=== PATIENT | female | born 1955 | race Caucasian/White ===

== ENCOUNTER 2017-12-20 10:48 | Emergency (ER) | payer BC ==
[~2017-12-20] VITALS: Ht 165.1 cm; Wt 60.0 kg
[2017-12-20 10:51] VITALS: BP 176/114; PULSE 72; RESP 14; TEMP 98.2; O2SAT 98
--- NOTE | 2017-12-20 11:52 | PD ---
HPI Chief Complaint: Complaint Time Seen by Provider: 11:17 Travel History International Travel<30 days: No Contact w/Intl Traveler<30days: No Traveled to known affect area: No History of Present Illness HPI 62-year-old female presents the emergency department with history of recurrent UTIs in the past. Patient states she's had dysuria since Friday. Eyes fever, chills, or vaginal discharge. Patient states she was recently treated for UTI 2 weeks ago with Keflex for 1 week and symptoms seemed to resolve but then returned on this past Friday. She denies flank pain. She is allergic to sulfa. Patient is visiting from [place]. [facility] Past Medical History Genitourinary: Yes (chronic uti) Social History Alcohol Use: Yes Tobacco Use: No Substance Use: No Allergies-Medications (Allergen,Severity, Reaction): Coded Allergies: Sulfa (Sulfonamide Antibiotics) (Verified Allergy, Intermediate, Hives, ) Review of Systems Except as stated in HPI: all other systems reviewed are Neg General / Constitutional: No: Fever, Chills Eyes: No: Visual changes HENT: No: Headaches Cardiovascular: No: Chest Pain or Discomfort Respiratory: No: Shortness of Breath Gastrointestinal: No: Abdominal Pain Genitourinary: Positive: Urgency, Frequency, Dysuria, No: Flank Pain, Discharge Musculoskeletal: No: Pain Skin: No Rash Neurologic: No: Weakness Psychiatric: No: Depression Endocrine: No: Polydipsia Hematologic/Lymphatic: No: Easy Bruising Physical Exam Narrative GENERAL: Patient appears in acute distress. SKIN: Warm and dry. Normal color. Normal turgor. HEAD: Atraumatic. Normocephalic. EYES: Pupils equal and round. No scleral icterus. No injection or drainage. ENT: No nasal bleeding or discharge. Mucous membranes pink and moist. Pharynx is clear. Airway is patent. NECK: Trachea midline. Supple. CARDIOVASCULAR: Regular rate and rhythm. RESPIRATORY: No accessory muscle use. Clear to auscultation. Breath sounds equal bilaterally. GASTROINTESTINAL: Abdomen soft, non-tender, nondistended. Hepatic and splenic margins not palpable. No CVA tenderness. MUSCULOSKELETAL: Extremities without clubbing, cyanosis, or edema. No obvious deformities. NEUROLOGICAL: Awake and alert. No obvious cranial nerve deficits. Motor grossly within normal limits. Five out of 5 muscle strength in the arms and legs. Normal speech. PSYCHIATRIC: Appropriate mood and affect; insight and judgment normal. Data Data Last Documented VS Vital Signs Date Time Temp Pulse Resp B/P (MAP) Pulse Ox O2 Delivery O2 Flow Rate FiO2 12/20/17 10:51 98.2 72 14 176/114 (134) 98 Orders Orders Urinalysis - C+S If Indicated (12/20/17 11:18) Labs Laboratory Tests Test 12/20/17 11:30 [facility] Medical Decision Making Medical Screen Exam Complete: Yes Emergency Medical Condition: Yes Differential Diagnosis Dysuria. Cystitis. Recurrent cystitis. Pyelonephritis. Narrative Course UA is collected and sent to the lab for culture. Patient will be treated with Macrodantin 100 mg twice a day 2 weeks. Patient follow-up with her primary care physician upon arrival back to [place]. Patient can follow-up sooner as needed. Diagnosis Primary Impression: Dysuria Referrals: Primary Care Physician Patient Instructions: Dysuria (ED), General Instructions Additional Instructions: UA is collected and sent to the lab for culture. Patient will be treated with Macrodantin 100 mg twice a day 2 weeks. Patient follow-up with her primary care physician upon arrival back to [place]. Patient can follow-up sooner as needed. Med/Other Pt SpecificInfo: Prescription(s) given Disposition: 01 DISCHARGE HOME Condition: Stable Sohan Aguiar Dec 20, 2017 11:52
[2017-12-20] MEDS ORDERED: MACR100C2 PO (11:53)
[2017-12-20 12:14] LABS: BACTERIA, URINE FEW /hpf; BILIRUBIN, URINE NEG (NEG); BLOOD, URINE TRACE (NEG); GLUCOSE,URINE NEG (NEG); KETONE, URINE NEG (NEG); NITRITE,URINE NEG (NEG); PH, URINE 5.5 (5.0-8.5); SQUAMOUS EPITHELIAL CELL URINE 1 /hpf (0-5); URINE COLOR LIGHT-YELLOW (YELLW/STRAW); URINE LEUKOCYTE ESTERASE LARGE (NEG); WHITE BLOOD CELL CLUMPS RARE
[2017-12-21] MEDS ORDERED: PHEN0.4T PO (10:17)
[2017-12-21] MEDS ORDERED: CIPR-9 PO (10:17)
== END 2017-12-20 12:13 | disposition home or self-care (01) ==
LOC: NEPD 10:48
DX: R30.0 Dysuria (principal); B96.20 Unspecified Escherichia coli [E. coli] as the cause of diseases classified elsewhere; Z88.2 Allergy status to sulfonamides
CPT/HCPCS: 81001; 87077; 87086; 87186; 99283

== ENCOUNTER 2017-12-21 09:49 | Emergency (ER) | payer BC ==
[~2017-12-21 09:49] MED LIST: MACR100C2 PO
[2017-12-21 09:51] VITALS: BP 145/84; PULSE 104; RESP 18; TEMP 100.2; O2SAT 97
[2017-12-21] MEDS ORDERED: PHEN0.4T PO (10:17)
[2017-12-21] MEDS ORDERED: CIPR-9 PO (10:17)
--- NOTE | 2017-12-21 10:17 | PD ---
HPI Chief Complaint: Flank/Kidney Pain Time Seen by Provider: 10:11 Travel History International Travel<30 days: No Contact w/Intl Traveler<30days: No Traveled to known affect area: No History of Present Illness HPI 52-year-old female had rigors overnight. She was seen here yesterday and diagnosed with urinary tract infection. Macrobid was given. She has been compliant with it. No vomiting. Suprapubic spasming and pain noted. She notes at home in [place] and Cipro always works our doctors have been reluctant to use it here. PFSH Past Medical History Genitourinary: Yes (chronic uti) Social History Alcohol Use: Yes Tobacco Use: No Substance Use: No Allergies-Medications (Allergen,Severity, Reaction): Coded Allergies: Sulfa (Sulfonamide Antibiotics) (Verified Allergy, Intermediate, Hives, ) Reported Meds & Prescriptions Reported Meds & Active Scripts Active Pyridium (Phenazopyridine HCl) 100 Mg Tab 100 Mg PO Q8H PRN Cipro (Ciprofloxacin HCl) 500 Mg Tab 500 Mg PO BID 7 Days Macrobid (Nitrofurantoin Monoh/Nitrofur Macro) 100 Mg Cap 100 Mg PO BID 14 Days Review of Systems Except as stated in HPI: all other systems reviewed are Neg Physical Exam Narrative GENERAL: 62-year-old female pleasant well-nourished and well no acute distress Vital Signs Date Time Temp Pulse Resp B/P (MAP) Pulse Ox O2 Delivery O2 Flow Rate FiO2 12/21/17 09:51 100.2 104 18 145/84 (104) 97 SKIN: Warm and dry. HEAD: Atraumatic. Normocephalic. EYES: Pupils equal and round. No scleral icterus. No injection or drainage. ENT: No nasal bleeding or discharge. Mucous membranes pink and moist. NECK: Trachea midline. No JVD. CARDIOVASCULAR: Tachycardic. Regular rhythm. RESPIRATORY: No accessory muscle use. Clear to auscultation. Breath sounds equal bilaterally. GASTROINTESTINAL: Minimal right flank tenderness with percussion. Abdomen soft. MUSCULOSKELETAL: Extremities without clubbing, cyanosis, or edema. No obvious deformities. NEUROLOGICAL: Awake and alert. No obvious cranial nerve deficits. Motor grossly within normal limits. Five out of 5 muscle strength in the arms and legs. Normal speech. PSYCHIATRIC: Appropriate mood and affect; insight and judgment normal. Data Data Last Documented VS Vital Signs Date Time Temp Pulse Resp B/P (MAP) Pulse Ox O2 Delivery O2 Flow Rate FiO2 12/21/17 09:51 100.2 104 18 145/84 (104) 97 Orders Orders Lidocaine 1% Inj (50 Ml) (Xylocaine 1% I (12/21/17 10:30) Ceftriaxone Inj (Rocephin Inj) (12/21/17 10:30) Ciprofloxacin (Cipro) (12/21/17 10:30) Ibuprofen (Motrin) (12/21/17 10:30) Lidocaine 1% Inj (Xylocaine 1% Inj) (12/21/17 10:25) Ed Discharge Order (12/21/17 10:58) [facility] Medical Decision Making Medical Screen Exam Complete: Yes Emergency Medical Condition: Yes Medical Record Reviewed: Yes Differential Diagnosis Sepsis, pyelonephritis, cystitis Narrative Course Patient has a complicated UTI. We will give a dose of Rocephin here and an oral Cipro prescription. There is mild tachycardia and a low-grade temperature which is expected with an early pyelo-complicated cystitis as his this scenario. Aggressive oral hydration antipyretics discussed with patient as well as return precautions. Heart rate 95 at 11 AM. Patient reports resting comfortably since her arrival about an hour ago. We discussed return precautions and she is ready to go. Diagnosis Primary Impression: Pyelonephritis Referrals: Primary Care Physician Med/Other Pt SpecificInfo: Prescription(s) given Scripts Phenazopyridine (Pyridium) 100 Mg Tab 100 MG PO Q8H Y for DYSURIA, #12 TAB 0 Refills Prov: Jaspreet Carty MD 12/21/17 Ciprofloxacin (Cipro) 500 Mg Tab 500 MG PO BID for Infection for 7 Days, #14 TAB 0 Refills Prov: Jaspreet Carty MD 12/21/17 Disposition: 01 DISCHARGE HOME Condition: Stable Jaspreet Carty MD Dec 21, 2017 10:17
[2017-12-21] MEDS ORDERED: LIDOCAINE HCL 1% 20 ML VIAL ONE (10:25)
[2017-12-21] MEDS ORDERED: LIDOCAINE HCL 1% 50 ML VIAL IM ONE (10:30)
[2017-12-21] MEDS ORDERED: CIPROFLOXACIN 500 MG TAB PO ONE (10:30)
[2017-12-21] MEDS ORDERED: IBUPROFEN 600 MG TAB PO ONE (10:30)
[2017-12-21 11:04] VITALS: PULSE 95; TEMP 99.3
== END 2017-12-21 11:42 | disposition home or self-care (01) ==
LOC: NEPC 09:49
DX: N12 Tubulo-interstitial nephritis, not specified as acute or chronic (principal)
CPT/HCPCS: 96372; 99284; J0696